=== PATIENT | female | born 2000 | race Caucasian/White ===

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

== ENCOUNTER 2022-05-15 10:47 | Inpatient (IN) | payer MEDICAID ==
[~2022-05-15] VITALS: Ht 152.4 cm; Wt 61.2 kg
[~2022-05-15 10:47] MED LIST changes: -FOLI0.4T2 MT; +FOLI0.4T6 MT
[2022-05-15] MEDS ORDERED: ACETAMINOPHEN 325MG TABLET PO STA (11:57)
[2022-05-15 12:22] LABS: CLARITY URINE CLOUDY (CLEAR); COLOR URINE YELLOW (YELLOW); KETONES URINE NEGATIVE (NEGATIVE); LEUKOCYTE ESTERASE URINE TRACE (NEGATIVE); NITRITE URINE NEGATIVE (NEGATIVE); OCCULT BLOOD URINE TRACE (NEGATIVE); PROTEIN URINE NEGATIVE (NEGATIVE); SPECIFIC GRAVITY URINE 1.017 (1.005-1.030); UROBILINOGEN URINE 0.2 E.U./dL (0.2-1.0)
[2022-05-15 12:35] LABS: BASOPHILS % 0.7 % (0.0-2.0); HEMATOCRIT. 43.3 % (36.0-48.0); LYMPHOCYTES % 23.9 % (20.0-50.0); MEAN CORPUSCULAR HEMOGLOBIN 31.3 pg (28.0-32.0); MEAN CORPUSCULAR VOLUME 90.5 fL (81.0-99.0); MEAN PLATELET VOLUME 8.3 fl (7.4-10.4); MONOCYTES % 7.2 % (2.0-8.0); NEUTROPHILS % 67.2 % (40.0-76.0); PLATELET 286 x1000/uL (130-400); RED BLOOD CELL COUNT 4.78 mill/uL (4.2-5.4); RED CELL DISTRIBUTION WIDTH 13.1 % (11.6-14.6)
[2022-05-15 12:41] LABS: CHLORIDE 102 mEq/L (98-107)
[2022-05-15 13:06] LABS: B-HCG QUANTITATIVE 125403 mIU/mL (<3)
[2022-05-15] MEDS ORDERED: CEFTRIAXONE 1 G PREMIX 50 ML IV ONE (15:00)
[2022-05-15 22:00] VITALS: BP_SYST 110; BP_SYST 126; BP_SYST 96; BP_DIAS 52; BP_DIAS 65; BP_DIAS 67
[2022-05-15] MEDS ORDERED: ACETAMINOPHEN 325MG TABLET PO PRN (22:30)
[2022-05-15] MEDS ORDERED: ONDANSETRON HCL 4MG/2ML INJ IV PRN (22:45)
[2022-05-16 04:00] VITALS: BP 100/61
[2022-05-16] MEDS ORDERED: POTASSIUM CHLORIDE 20MEQ TABLET SR PO SCH (07:15)
[2022-05-16 08:00] VITALS: BP 98/67
[2022-05-16] MEDS ORDERED: CEPH500C2 MT (10:00)
[2022-05-16 12:00] VITALS: BP 103/63
[2022-05-16 14:39] VITALS: BP 103/63
[2022-05-16] MEDS ORDERED: CEFTRIAXONE 1,000 MG in DEXTROSE 5% WATER 50 ML IV SCH (15:00)
[2022-05-16 15:14] LABS: CLARITY URINE CLEAR (CLEAR); COLOR URINE YELLOW (YELLOW); KETONES URINE NEGATIVE (NEGATIVE); LEUKOCYTE ESTERASE URINE NEGATIVE (NEGATIVE); NITRITE URINE NEGATIVE (NEGATIVE); OCCULT BLOOD URINE NEGATIVE (NEGATIVE); PH URINE 7.5 (4.5-8.0); PROTEIN URINE NEGATIVE (NEGATIVE); SPECIFIC GRAVITY URINE 1.012 (1.005-1.030); UROBILINOGEN URINE 0.2 E.U./dL (0.2-1.0)
[2022-05-16 15:37] LABS: *AMPHETAMINES SCREEN URINE NEGATIVE (NEGATIVE); *BARBITURATES SCREEN URINE NEGATIVE (NEGATIVE); *BENZODIAZEPINES SCREEN URINE NEGATIVE (NEGATIVE); *COCAINE SCREEN URINE NEGATIVE (NEGATIVE); CANNABINOID URINE SCREEN NEGATIVE (NEGATIVE); METHADONE URINE SCREEN NEGATIVE (NEGATIVE); OPIATES URINE SCREEN NEGATIVE (NEGATIVE); PHENCYCLIDINE URINE SCREEN NEGATIVE (NEGATIVE)
== END 2022-05-16 15:01 | disposition home or self-care (01) | DRG 566 ==
LOC: ER 10:47 → 6EST 16:43 → ENRESERV 19:03 → 6EST 22:17
PROVIDERS: ADMIT Internal Medicine; ATTEND Internal Medicine
DX: O23.01 Infections of kidney in pregnancy, first trimester (principal); E87.1 Hypo-osmolality and hyponatremia; O99.281 Endocrine, nutritional and metabolic diseases complicating pregnancy, first trimester; E87.6 Hypokalemia; Z3A.08 8 weeks gestation of pregnancy
CPT/HCPCS: 36415; 76801; 80053; 80305; 81003; 84702; 85025; 86850; 86900; 99285; J0696; J7060

== ENCOUNTER 2022-09-29 22:31 | Observation (INO) | payer MEDICAID, OTHER ==
[~2022-09-29] VITALS: Ht 162.6 cm; Wt 68.0 kg
[~2022-09-29 22:31] MED LIST changes: +CEPH500C2 MT
[2022-09-30] MEDS ORDERED: SODIUM CHLORIDE 0.9% 1,000 ML IV SCH (00:30)
[2022-09-30 03:42] LABS: CLARITY URINE CLEAR (CLEAR); COLOR URINE YELLOW (YELLOW); KETONES URINE TRACE (NEGATIVE); LEUKOCYTE ESTERASE URINE TRACE (NEGATIVE); NITRITE URINE NEGATIVE (NEGATIVE); OCCULT BLOOD URINE NEGATIVE (NEGATIVE); PROTEIN URINE NEGATIVE (NEGATIVE); SPECIFIC GRAVITY URINE 1.024 (1.005-1.030)
== END 2022-09-30 06:00 | disposition home or self-care (01) ==
LOC: 8 EST LDRP 22:31
PROVIDERS: ADMIT Specialist; ATTEND Specialist
DX: O26.893 Other specified pregnancy related conditions, third trimester (principal); R10.30 Lower abdominal pain, unspecified; N89.8 Other specified noninflammatory disorders of vagina; Z3A.30 30 weeks gestation of pregnancy
CPT/HCPCS: 59025; 81003; 82731; 87070; 87075; 87210; 96360; 96361; 99281; G0378